=== PATIENT | male | born 1950 | race Caucasian/White ===

== ENCOUNTER 2016-07-28 14:59 | Observation (INO) | payer BC, OTHER ==
--- NOTE | 2016-07-28 15:17 | EDM.PDOC ---
ED HPI Trauma - General Chief Complaint: Trauma Time Seen by Provider: 07/28/16 15:14 Source: Reports: Patient History Limitations: Reports: No limitations - History of Present Illness INITIAL COMMENTS - FREE TEXT/NARRATIVE: pt fell off of a ladder about 16 feet. He did not hit his head but did scrape it on the cement. He is having pain in the lower back area. Occurred When: just prior to arrival Occurred Where: home Method of Injury: fall, other (pt fell about 16 feet off a ladder landing on his buttock. ) Severity: moderate Pain/Injury Location: Reports: other (scrape on the rt forehead area, ) Consciousness: Reports: no loss of consciousness Allergies/ADRs: Allergies No Known Allergies Allergy (Verified 07/28/16 15:13) Home Medications: Ambulatory Orders Omeprazole Magnesium [Prilosec Otc] 1 tab PO DAILY 07/28/16 [Confirmed 07/28/16] Social & Family History - Tobacco Use Second Hand Smoke Exposure: No - Alcohol Use Days Per Week of Alcohol Use: 5 Number of Drinks Per Day: 6 Total Drinks Per Week: 30 - Recreational Drug Use Recreational Drug Use: No Review of Systems - Review of Systems Review Of Systems: See Below Constitutional: Reports: no symptoms Eyes: Reports: no symptoms Ears: Reports: no symptoms Nose: Reports: no symptoms Mouth/Throat: Reports: no symptoms Respiratory: Reports: No Symptoms Cardiovascular: Reports: no symptoms GI/Abdominal: Reports: No symptoms Genitourinary: Reports: no symptoms Musculoskeletal: Reports: other (Pt has acute pain in the lower lumbar area. He fell 16 feet. ) ED EXAM, TRAUMA (MAJOR/MULTI) - Physical Exam Exam: See Below Text/Narrative:: Pt fell 16 feet and landed on his buttock area. He is very uncomfortable in the lower lumbar area. He was not knocked out. he does not have a headache. He has some abrasions on the rt side of his scalp. Exam Limited By: No limitations General Appearance: alert, anxious, moderate distress Head: other ( pt has abrasions on the rt side of his head, He has a hematoma on the rt more to the center. pupils are equal and reactive. ) Ears: normal TMs Nose: normal inspection Throat/Mouth: Normal inspection Neck: non-tender Cardiovascular: regular rate, rhythm Respiratory/Chest: no respiratory distress GI/Abdominal: soft, non tender (Male) Exam: Deferred Rectal (Males) Exam: Deferred Back: other ( tender in the mid to lower lumbar area. ) Extremities: no evidence of injury Neurologic: alert, oriented x 3 Course - Vital Signs Last Recorded V/S: Last Vital Signs Temp 37.7 C 07/28/16 15:07 Pulse 79 07/28/16 16:58 Resp 16 07/28/16 15:58 BP 116/56 L 07/28/16 16:58 Pulse Ox 91 L 07/28/16 16:58 - Orders/Labs/Meds Orders: Active Orders 24 hr Category Date Time Status Chest 1V Frontal [CR] Stat Exams 07/28/16 15:11 Taken Head wo Cont [CT] Stat Exams 07/28/16 16:31 Taken Lumbar Spine wo Cont [CT] Stat Exams 07/28/16 15:13 Taken HYDROmorphone [Dilaudid] Med 07/28/16 18:10 Once 1 mg IVPUSH ONETIME ONE Sodium Chloride 0.9% [Normal Saline] 1,000 ml Med 07/28/16 15:45 Active IV ASDIRECTED Medication Orders Sodium Chloride (Normal Saline) 1,000 mls @ 400 mls/hr IV ASDIRECTED KIRSTIN Last Admin: 07/28/16 15:45 Dose: 400 mls/hr Labs: Laboratory Tests 07/28/16 07/28/16 07/28/16 Range/Units 15:00 15:10 17:27 WBC 11.6 H (4.5-11.0) K/uL RBC 4.95 (4.30-5.90) M/uL Hgb 16.1 H (12.0-15.0) g/dL Hct 46.5 (40.0-54.0) % MCV 94 (80-98) fL MCH 33 H (27-31) pg MCHC 35 (32-36) % Plt Count 149 L (150-400) K/uL Neut % (Auto) 75 H (36-66) % Lymph % (Auto) 16 L (24-44) % [place] % (Auto) 8 H (2-6) % Eos % (Auto) 0 L (2-4) % Baso % (Auto) 0 (0-1) % Sodium 143 (140-148) mmol/L Potassium 4.5 (3.6-5.2) mmol/L Chloride 107 (100-108) mmol/L Carbon Dioxide 29 (21-32) mmol/L Anion Gap 7.4 (5.0-14.0) mmol/L BUN 16 (7-18) mg/dL Creatinine 1.3 (0.8-1.3) mg/dL Est Cr Clr Drug Dosing 61.14 mL/min Estimated GFR (MDRD) 56 L (>60) Glucose 113 H (74-106) mg/dL Calcium 8.7 (8.5-10.1) mg/dL Total Bilirubin 0.5 (0.2-1.0) mg/dL AST 27 (15-37) U/L ALT 21 (12-78) U/L Alkaline Phosphatase 100 (46-116) U/L Total Protein 7.0 (6.4-8.2) g/dL Albumin 3.8 (3.4-5.0) g/dL Globulin 3.2 (2.3-3.5) g/dL Albumin/Globulin Ratio 1.2 (1.2-2.2) Urine Color Yellow Urine Appearance Slightly cloudy Urine pH 5.0 (4.5-8.0) Ur Specific [place] 1.025 (1.008-1.030) Urine Protein Negative (NEGATIVE) mg/dL Urine Glucose (UA) Normal (NEGATIVE) mg/dL Urine Ketones Negative (NEGATIVE) mg/dL Urine Occult Blood Negative (NEGATIVE) Urine Nitrite Negative (NEGAITVE) Urine Bilirubin Negative (NEGATIVE) Urine Urobilinogen Normal (NORMAL) mg/dL Ur Leukocyte Esterase Negative (NEGATIVE) Urine RBC Not seen (0-5) Urine WBC 0-5 (0-5) Ur Epithelial Cells Few Amorphous Sediment Not seen Urine Bacteria Moderate Urine Mucus Moderate Urine Other Meds: Medications Generic Name Dose Route Start Last Admin Trade Name Freq PRN Reason Stop Dose Admin Sodium Chloride 1,000 mls @ 400 mls/hr 07/28/16 15:45 07/28/16 15:45 Normal Saline IV 400 mls/hr ASDIRECTED KIRSTIN Administration Discontinued Medications Generic Name Dose Route Start Last Admin Trade Name Freq PRN Reason Stop Dose Admin Al Hydroxide/Mg Hydroxide 30 ml 07/28/16 15:44 07/28/16 16:01 Mag-Al Plus PO 07/28/16 15:45 30 ml ONETIME ONE Administration Hydromorphone HCl 0.5 mg 07/28/16 16:32 07/28/16 16:42 Dilaudid IVPUSH 07/28/16 16:33 0.5 mg ONETIME ONE Administration Hydromorphone HCl 1 mg 07/28/16 18:10 Dilaudid IVPUSH 07/28/16 18:11 ONETIME ONE Ondansetron HCl 4 mg 07/28/16 18:10 Zofran IVPUSH 07/28/16 18:11 ONETIME ONE - Re-Assessments/Exams Free Text/Narrative Re-Assessment/Exam: 07/28/16 18:11 Pt arrived with pain in lumbar area. He had a cat scan of the head which was neg. His cat scan of the lumbar spine showed a endplate compression change at L1 and L2. Departure - Departure Time of Disposition: 18:13 Disposition: Admitted As Inpatient 68 Condition: fair Clinical Impression: Compression fracture of L2 lumbar vertebra, Compression fracture of L1 lumbar vertebra, Abrasion of face Forms: ED Department Discharge Care Plan Goals: admit to [facility]. - My Orders Last 24 Hours: My Active Orders 07/28/16 15:11 Chest 1V Frontal [CR] Stat 07/28/16 15:13 Lumbar Spine wo Cont [CT] Stat 07/28/16 15:45 Sodium Chloride 0.9% [Normal Saline] 1,000 ml IV ASDIRECTED 07/28/16 16:31 Head wo Cont [CT] Stat 07/28/16 18:10 HYDROmorphone [Dilaudid] 1 mg IVPUSH ONETIME ONE - Assessment/Plan Last 24 Hours: My Active Orders 07/28/16 15:11 Chest 1V Frontal [CR] Stat 07/28/16 15:13 Lumbar Spine wo Cont [CT] Stat 07/28/16 15:45 Sodium Chloride 0.9% [Normal Saline] 1,000 ml IV ASDIRECTED 07/28/16 16:31 Head wo Cont [CT] Stat 07/28/16 18:10 HYDROmorphone [Dilaudid] 1 mg IVPUSH ONETIME ONE
[2016-07-28] MEDS ORDERED: Aluminum Hydroxide/Magnesium Hydroxide/Simethicone Susp 30 ML Cup PO ONE (15:44)
[2016-07-28] MEDS ORDERED: Sodium Chloride 0.9% 1,000 ML IV SCH (15:45)
[2016-07-28] MEDS ORDERED: HYDROmorphone 0.5 MG/0.5 ML Syringe IVPUSH ONE (16:32)
[2016-07-28] MEDS ORDERED: Ondansetron 4 MG/2 ML SDV IVPUSH ONE (18:10)
[2016-07-28] MEDS ORDERED: HYDROmorphone 1 MG/ML Syringe IVPUSH ONE (18:10)
[2016-07-28] MEDS ORDERED: HYDROmorphone/Normal Saline 15 MG/30 ML PCA IV PRN (20:42)
[2016-07-28] MEDS ORDERED: Albuterol 0.083% 2.5 MG/3 ML Neb Soln NEB PRN (20:42)
[2016-07-28] MEDS ORDERED: oxyCODONE 5 MG Tab PO PRN (20:42)
[2016-07-28] MEDS ORDERED: Ondansetron 4 MG Tab.DIS PO PRN (20:42)
[2016-07-28] MEDS ORDERED: LORazepam 2 MG/ML MDV IV PRN (20:42)
[2016-07-28] MEDS ORDERED: Zolpidem 5 MG Tab PO PRN (20:42)
[2016-07-28] MEDS ORDERED: Pantoprazole 40 MG Vial IV SCH (20:42)
[2016-07-28] MEDS ORDERED: Docusate Sodium 100 MG Cap PO PRN (20:42)
[2016-07-28] MEDS ORDERED: Bisacodyl 5 MG Tab PO PRN (20:42)
[2016-07-28] MEDS ORDERED: Naloxone 0.4 MG/ML SDV IVPUSH PRN (20:42)
[2016-07-28] MEDS: Sodium Chloride 0.9% 1,000 ML IV SCH (21:42)
--- NOTE | 2016-07-28 22:32 | PCM.HP ---
H&P History of Present Illness - General Date of Service: 07/28/16 Admit Problem/Dx: Admission Diagnosis/Problem Admission Diagnosis/Problem Compression fracture Source of Information: Patient, EMS, Provider, RN History Limitations: Reports: No limitations - History of Present Illness Initial Comments - Free Text/Narative: ER course; this is a 66-year-old male presents emergency room by EMS, after a fall at his home. He reports was on a ladder about 16-18 feet up when he slipped and fell from the ladder. He reports no loss of consciousness. He was found laying on his left side in a recumbent position by his daughter. The fall was not witnessed by anyone. He has an abrasion to the posterior scalp with bruising. EMS was called as patient was unable to move after a fall. While in emergency room he had CT scan of head lumbar spine. Head CT negative, lumbar spine showed endplate compression fractures of L1 and L2. Labs are negative. Due to to severe back pain patient will be admitted to hospital observation unit for pain control. Patient agrees with plan of care. Onset of Symptoms: Reports: sudden Duration of Symptoms: Reports: Hour(s): Location: Reports: back (Low back), generalized Quality: Reports: Other (Pain currently controlled with Dilaudid) Improves with: Reports: Medication Worsens with: Reports: Movement Context: Reports: trauma (Fell 16 feet from ladder to cement slab in front of his house.) Associated Symptoms: Reports: other (Back pain) Lower Back Pain Score (Numeric/FACES): 5 - Related Data Allergies/Adverse Reactions: Allergies Allergy/AdvReac Type Severity Reaction Status Date / Time No Known Allergies Allergy Verified 07/28/16 15:13 Home Medications: Home Meds Omeprazole Magnesium [Prilosec Otc] 1 tab PO DAILY 07/28/16 [History] Past Medical History HEENT History: Reports: Hard of hearing, Impaired vision Gastrointestinal History: Reports: GERD Musculoskeletal History: Reports: Fracture - Past Surgical History GI Surgical History: Reports: Appendectomy Social & Family History - Family History Family Medical History: Noncontributory - Tobacco Use Smoking Status *Q: Never Smoker Second Hand Smoke Exposure: Yes - Caffeine Use Caffeine Use: Reports: None - Alcohol Use Days Per Week of Alcohol Use: 7 Number of Drinks Per Day: 4 Total Drinks Per Week: 28 Date of Last Drink: 07/27/16 - Recreational Drug Use Recreational Drug Use: No - Living Situation & Occupation Living situation: Reports: 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[place], [place]) H&P Review of Systems - Review of Systems: Review Of Systems: See Below General: Reports: other (Acute low back pain) HEENT: Reports: other (Abrasion and hematoma to posterior scalp.) Pulmonary: Reports: No Symptoms Cardiovascular: Reports: no symptoms Gastrointestinal: Reports: Nausea Genitourinary: Reports: no symptoms Musculoskeletal: Reports: back pain Skin: Reports: bruising, wound (Abrasion to posterior head.) Psychiatric: Reports: no symptoms Neurological: Reports: No Symptoms Hematologic/Lymphatic: Reports: no symptoms Immunologic: Reports: no symptoms Exam - Exam Exam: See Below - Vital Signs Vital Signs: Last Vital Signs Temp 37.7 C 07/28/16 15:07 Pulse 87 07/28/16 20:25 Resp 14 07/28/16 20:25 BP 136/82 07/28/16 20:25 Pulse Ox 91 L 07/28/16 22:31 Weight: 106.367 kg - Exam General: alert, oriented, cooperative, sedated HEENT: PERRLA, Conjunctiva clear, EACs clear, EOMI, Hearing intact, Mucosa moist & pink, Nares patent, Normal nasal septum, Posterior pharynx clear, Pupils equal, Pupils reactive, TMs clear Neck: supple, trachea midline, 2 Lungs: Clear to auscultation Cardiovascular: regular rate, regular rhythm Abdomen: normal bowel sounds, soft (Male) Exam: Deferred Rectal (Males) Exam: Deferred Back Exam: muscle spasm, paraspinal tenderness, vertebral tenderness Extremities: normal inspection Skin: wound (Abrasion noted to posterior scalp without bleeding) Neurological: reflexes equal bilateral, strength equal bilateral Neuro Extensive - Mental Status: alert, oriented x3, normal mood/affect, normal cognition, memory intact Psychiatric: alert, normal affect, normal mood - Patient Data Result Diagrams: 07/28/16 15:10 07/28/16 15:00 *Q Meaningful Use (ADM) - VTE *Q VTE Criteria *Q: - Stroke *Q Stroke Criteria *Q: - AMI *Q AMI Criteria *Q: - Problem List (1) Abrasion of face SNOMED Code(s): 906248395 ICD Code: S00.81XA - ABRASION OF OTHER PART OF HEAD, INITIAL ENCOUNTER Status: Acute Priority: Medium Current Visit: Yes Qualifiers: Encounter type: initial encounter Qualified Code(s): S00.81XA - Abrasion of other part of head, initial encounter (2) Compression fracture of L1 lumbar vertebra SNOMED Code(s): 691400062 ICD Code: S32.010A - WEDGE COMPRESSION FRACTURE OF FIRST LUMBAR VERTEBRA, INIT Status: Acute Priority: High Current Visit: Yes Qualifiers: Encounter type: initial encounter Fracture type: closed Qualified Code(s) : S32.010A - Wedge compression fracture of first lumbar vertebra, initial encounter for closed fracture (3) Compression fracture of L2 lumbar vertebra SNOMED Code(s): 01280058372556404 ICD Code: S32.020A - WEDGE COMPRESSION FRACTURE OF SECOND LUMBAR VERTEBRA, INIT Status: Acute Priority: High Current Visit: Yes Problem List Initiated/Reviewed/Updated: Yes Orders Last 24hrs: Active Orders 24 hr Category Date Time Status Patient Status [ADT] Routine ADT 07/28/16 20:42 Active Communication Order [RC] STAT Care 07/28/16 20:42 Active Intake and Output [RC] QSHIFT Care 07/28/16 20:42 Active Notify Provider [RC] PRN Care 07/28/16 20:42 Active PATTERNMAKER ALL AROUND Record [RC] PER UNIT ROUTINE Care 07/28/16 20:42 Active Pulse Oximetry [RC] CONTINUOUS Care 07/28/16 20:42 Active Pulse Oximetry [RC] CONTINUOUS Care 07/28/16 20:42 Active RT Aerosol Therapy [RC] ASDIRECTED Care 07/28/16 20:42 Active Up With Assistance [RC] ASDIRECTED Care 07/28/16 20:42 Active VTE/DVT Education [RC] Per Unit Routine Care 07/28/16 20:42 Active Vital Signs [RC] Q4H Care 07/28/16 20:42 Active Consult to Spiritual Care [CONS] Routine Cons 07/28/16 20:42 Active OT Evaluation and Treatment [CONS] Routine Cons 07/28/16 20:42 Active PT Evaluation and Treatment [CONS] Routine Cons 07/28/16 20:42 Active Regular Diet [DIET] Diet 07/28/16 Breakfast Active BASIC METABOLIC PANEL,BMP [CHEM] AM Lab 07/29/16 05:11 Ordered CBC WITH AUTO DIFF [HEME] AM Lab 07/29/16 05:11 Ordered Acetaminophen [Tylenol] Med 07/28/16 20:42 Active 650 mg PO Q4H PRN Albuterol [Proventil Neb Soln] Med 07/28/16 20:42 Active 2.5 mg NEB Q4H PRN Bisacodyl [Dulcolax] Med 07/28/16 20:42 Active 5 mg PO DAILY PRN Docusate Sodium [Colace] Med 07/28/16 20:42 Active 100 mg PO BID PRN HYDROmorphone/Normal Saline [Dilaudid PATTERNMAKER ALL AROUND 15 MG in NS Med 07/28/16 20:42 Active 30 ML] See Protocol IV ASDIRECTED PRN LORazepam [Ativan] Med 07/28/16 20:42 Active 1 mg IV Q6H PRN Naloxone [Narcan] Med 07/28/16 20:42 Active 0.4 mg IVPUSH Q2M PRN Ondansetron [Zofran ODT] Med 07/28/16 20:42 Active 4 mg PO Q6H PRN Pantoprazole [ProTONIX IV] Med 07/28/16 20:42 Active 40 mg IV Q12H Sodium Chloride 0.9% [Normal Saline] 1,000 ml Med 07/28/16 20:42 Active IV ASDIRECTED Zolpidem [Ambien] Med 07/28/16 20:42 Active 5 mg PO BEDTIME PRN oxyCODONE Med 07/28/16 20:42 Active 5 mg PO Q4H PRN Medication Discontinuation Instructions [OM.PC] Stat Oth 07/28/16 20:42 Ordered Sequential Compression Device [OM.PC] Per Unit Routine Oth 07/28/16 20:42 Ordered Resuscitation Status Routine Resus Stat 07/28/16 20:12 Ordered Medication Orders Acetaminophen (Tylenol) 650 mg PO Q4H PRN PRN Reason: Pain (Mild 1-3)/fever Albuterol (Proventil Neb Soln) 2.5 mg NEB Q4H PRN PRN Reason: Shortness Of Breath/wheezing Bisacodyl (Dulcolax) 5 mg PO DAILY PRN PRN Reason: Constipation Docusate Sodium (Colace) 100 mg PO BID PRN PRN Reason: Constipation Hydromorphone HCl (Dilaudid Genetic Coordinator 15 Mg In Ns 30 Ml) 0 mg IV ASDIRECTED PRN; Protocol PRN Reason: Pain Last Admin: 07/28/16 21:44 Dose: 15 mg Sodium Chloride (Normal Saline) 1,000 mls @ 125 mls/hr IV ASDIRECTED KIRSTIN Last Admin: 07/28/16 21:42 Dose: 125 mls/hr Lorazepam (Ativan) 1 mg IV Q6H PRN PRN Reason: Nausea/Vomiting Naloxone HCl (Narcan) 0.4 mg IVPUSH Q2M PRN PRN Reason: Respiratory Distress Ondansetron HCl (Zofran Odt) 4 mg PO Q6H PRN PRN Reason: Nausea able to take PO Oxycodone HCl (Oxycodone) 5 mg PO Q4H PRN PRN Reason: Pain (moderate 4-6) Pantoprazole Sodium (Protonix Iv) 40 mg IV Q12H [facility] Last Admin: 07/28/16 22:06 Dose: 40 mg Zolpidem Tartrate (Ambien) 5 mg PO BEDTIME PRN PRN Reason: Sleep Assessment/Plan Comment:: ASSESSMENT / PLAN -ER course; this is a 66-year-old male presents emergency room by EMS, after a fall at his home. He reports was on a ladder about 16-18 feet up when he slipped and fell from the ladder. He reports no loss of consciousness. He was found laying on his left side in a recumbent position by his daughter. The fall was not witnessed by anyone. He has an abrasion to the posterior scalp with bruising. EMS was called as patient was unable to move after a fall. While in emergency room he had CT scan of head lumbar spine. Head CT negative, lumbar spine showed endplate compression fractures of L1 and L2. Labs are negative. Due to to severe back pain patient will be admitted to hospital observation unit for pain control. Patient agrees with plan of care. Plan -Admit to [address] [place] [address] for further monitoring Compression fracture of Lumbar 1 and Lumbar 2 -PATTERNMAKER ALL AROUND Dilaudid pump for pain control; see protocol -IV fluids for rehydration NS at 125 mL per hour -Advise to notify nurses of any chest pain or other symptoms -Order PT, OT -will need to order back brace in am -And a.m. labs: CBC, BMP Scalp Laceration -wound care -monitor for signs of infection Maintenance issues -Orders home meds: hold -Nutrition: Regular diet -Glass catheter not indicated at this time -DVT:SCD -GI Prophalaxis; Protonix 40mg IV bid -referral for Lasting Room Supervisor; spiritual care CODE STATUS: Full Admission status: Admit to Observation -I expect this patient to stay less than 24 hours, not to exceed 96 hours for evaluation and management of this problem. Disposition; home with family Primary care provider: [facility] Ayana
[2016-07-29] MEDS: Sodium Chloride 0.9% 1,000 ML IV SCH (05:26)
[2016-07-29] MEDS: Pantoprazole 40 MG Tab.CR PO SCH ×3 (08:17→17:18)
--- NOTE | 2016-07-29 10:37 | CR ---
Trauma board limits details. Cardiomegaly. Metallic object about the left axilla. No focal consolida tion.
--- NOTE | 2016-07-29 12:25 | PCM.PN ---
- General Info Date of Service: 07/29/16 Functional Status: Reports: pain controlled, ambulating, urinating - Review of Systems General: Reports: No Symptoms Pulmonary: Reports: no symptoms Cardiovascular: Reports: No Symptoms Gastrointestinal: Reports: No symptoms Musculoskeletal: Reports: back pain, leg pain Systems Review Comment:: Mr. Siddiqi is a C6-year-old gentleman who is admitted through the emergency department to observation status after he fell yesterday experiencing spinal compression fractures. X-rays have been reviewed by Dr. Sims, he's not felt to require any type of surgical intervention, a race has been recommended. Pain control is been adequate since admission and he denies chest pain or significant shortness of breath. He does report significant pain in his right hip. - Patient Data Vitals - most recent: Last Vital Signs Temp 99.7 F 07/29/16 11:18 Pulse 95 07/29/16 11:18 Resp 18 07/29/16 11:18 BP 144/77 H 07/29/16 11:18 Pulse Ox 91 L 07/29/16 11:18 Weight - most recent: 234 lb 8 oz I&O - last 24 hours: Intake & Output 07/28/16 07/29/16 07/29/16 22:59 06:59 14:59 Intake Total 400 953 120 Output Total 400 Balance 400 553 120 Lab Results last 24 hrs: Laboratory Results - last 24 hr 07/29/16 07/29/16 Range/Units 05:00 05:00 WBC 11.9 H (4.5-11.0) K/uL RBC 4.34 (4.30-5.90) M/uL Hgb 13.8 D (12.0-15.0) g/dL Hct 41.5 (40.0-54.0) % MCV 96 (80-98) fL MCH 32 H (27-31) pg MCHC 33 (32-36) % Plt Count 130 L (150-400) K/uL Neut % (Auto) 71 H (36-66) % Lymph % (Auto) 18 L (24-44) % [place] % (Auto) 11 H (2-6) % Eos % (Auto) 0 L (2-4) % Baso % (Auto) 0 (0-1) % Sodium 143 (140-148) mmol/L Potassium 4.1 (3.6-5.2) mmol/L Chloride 108 (100-108) mmol/L Carbon Dioxide 29 (21-32) mmol/L Anion Gap 6.0 (5.0-14.0) mmol/L BUN 18 (7-18) mg/dL Creatinine 1.1 (0.8-1.3) mg/dL Est Cr Clr Drug Dosing 71.96 mL/min Estimated GFR (MDRD) > 60 (>60) Glucose 100 (74-106) mg/dL Calcium 7.9 L (8.5-10.1) mg/dL Med Orders - Current: Current Medications Acetaminophen (Tylenol) 650 mg PO Q4H PRN PRN Reason: Pain (Mild 1-3)/fever Albuterol (Proventil Neb Soln) 2.5 mg NEB Q4H PRN PRN Reason: Shortness Of Breath/wheezing Bisacodyl (Dulcolax) 5 mg PO DAILY PRN PRN Reason: Constipation Docusate Sodium (Colace) 100 mg PO BID PRN PRN Reason: Constipation Hydromorphone HCl (Dilaudid Disabilities Services Officer 15 Mg In Ns 30 Ml) 0 mg IV ASDIRECTED PRN; Protocol PRN Reason: Pain Last Admin: 07/28/16 21:44 Dose: 15 mg Lorazepam (Ativan) 1 mg IV Q6H PRN PRN Reason: Nausea/Vomiting Naloxone HCl (Narcan) 0.4 mg IVPUSH Q2M PRN PRN Reason: Respiratory Distress Ondansetron HCl (Zofran Odt) 4 mg PO Q6H PRN PRN Reason: Nausea able to take PO Last Admin: 07/29/16 08:16 Dose: 4 mg Oxycodone HCl (Oxycodone) 5 mg PO Q4H PRN PRN Reason: Pain (moderate 4-6) Pantoprazole Sodium (Protonix) 40 mg PO BIDAC KIRSTIN Last Admin: 07/29/16 09:08 Dose: 40 mg Zolpidem Tartrate (Ambien) 5 mg PO BEDTIME PRN PRN Reason: Sleep Discontinued Medications Al Hydroxide/Mg Hydroxide (Mag-Al Plus) 30 ml PO ONETIME ONE Stop: 07/28/16 15:45 Last Admin: 07/28/16 16:01 Dose: 30 ml Hydromorphone HCl (Dilaudid) 0.5 mg IVPUSH ONETIME ONE Stop: 07/28/16 16:33 Last Admin: 07/28/16 16:42 Dose: 0.5 mg Hydromorphone HCl (Dilaudid) 1 mg IVPUSH ONETIME ONE Stop: 07/28/16 18:11 Last Admin: 07/28/16 18:26 Dose: 1 mg Sodium Chloride (Normal Saline) 1,000 mls @ 400 mls/hr IV ASDIRECTED [facility] Last Admin: 07/28/16 15:45 Dose: 400 mls/hr Sodium Chloride (Normal Saline) 1,000 mls @ 125 mls/hr IV ASDIRECTED [facility] Last Admin: 07/29/16 05:26 Dose: 125 mls/hr Ondansetron HCl (Zofran) 4 mg IVPUSH ONETIME ONE Stop: 07/28/16 18:11 Last Admin: 07/28/16 18:25 Dose: 4 mg Pantoprazole Sodium (Protonix Iv) 40 mg IV Q12H [facility] Last Admin: 07/28/16 22:06 Dose: 40 mg - Exam Quality Assessment: DVT prophylaxis General: alert, oriented, cooperative Lungs: Clear to auscultation, Normal respiratory effort Cardiovascular: Regular Rate, Regular Rhythm Abdomen: bowel sounds present, soft, no tenderness, no distension Back Exam: vertebral tenderness Extremities: other (Right hip pain) - Problem List Review Problem List Initiated/Reviewed/Updated: Yes - My Orders Last 24 Hours: My Active Orders 07/29/16 12:18 Hip Min 4V Rt [CR] Stat 07/29/16 12:19 Convert IV to Saline Lock [OM.PC] Routine - Plan Plan:: ASSESSMENT / PLAN SPINAL COMPRESSION FRACTURES OF L1 AND L2-secondary to a fall off of a ladder -COMPUTER SUPPORT TECHNICIAN Dilaudid pump for pain control; see protocol -Saline lock IV -Order PT, OT -Back brace will be available tomorrow SCALP LACERATION -Wound care -monitor for signs of infection RIGHT HIP PAIN -X-rays of the right hip Maintenance issues -Orders home meds: hold -Nutrition: Regular diet -Glass catheter not indicated at this time -DVT:SCD -GI Prophalaxis; Protonix 40mg IV bid CODE STATUS: Full Admission status: Admit to Observation -I expect this patient to stay less than 24 hours, not to exceed 96 hours for evaluation and management of this problem. Disposition; home with family Primary care provider: [facility] Ayana
--- NOTE | 2016-07-29 13:07 | CR ---
Mild-moderate degenerative changes right hip. No fracture. Osseous protuberance at the right iliac c rest. Correlate for prior surgical change or trauma. Osteochondroma could have this appearance.
[2016-07-29] MEDS ORDERED: Sodium Chloride 0.9% 1,000 ML IV SCH (20:15)
[2016-07-29] MEDS ORDERED: Sodium Chloride 0.9% 10 ML Syringe FLUSH PRN (20:31)
[2016-07-29] MEDS ORDERED: Sodium Chloride 0.9% 80 ML IV SCH (20:45)
[2016-07-29] MEDS ORDERED: Iopamidol 612 MG/ML 100 ML Bottle IV SCH (20:45)
--- NOTE | 2016-07-29 20:48 | PCM.SN ---
- Free Text/Narrative Note: time : 19:24 will call from 2 N. nursing Patient with fever of 102.2 pulse 98 respirations 16 O2 sat is 89 to 91% Breath sounds are diminished. Assessment: rule out sepsis Plan. Will do CT scan of abdomen pelvis chest. Labs CBC, BMP, lactic acid, blood cultures x2, amylase, lipase. IV fluids normal saline at 125 per hour Treat fever with Tylenol Placed on oxygen at 2 L per nasal cannula
[2016-07-30] MEDS: Acetaminophen 325 MG Tab PO PRN ×2 (02:30→10:04)
[2016-07-30] MEDS: Pantoprazole 40 MG Tab.CR PO SCH (07:18)
[2016-07-30 12:13] VITALS: BP 135/77
--- NOTE | 2016-07-30 14:14 | PCM.DCSUM1 ---
Discharge Summary - Hospital Course Brief History: This patient is a 66-year-old gentleman who was admitted through the emergency room with severe back pain secondary to spinal compression fractures at L1 and 2 related to a fall. - Discharge Data Discharge Date: 07/30/16 Discharge Disposition: Home, Self-Care 01 Condition: Good - Discharge Diagnosis/Problem(s) (1) Compression fracture of L2 lumbar vertebra SNOMED Code(s): 48468337438624061 ICD Code: S32.020A - WEDGE COMPRESSION FRACTURE OF SECOND LUMBAR VERTEBRA, INIT Status: Acute Priority: High Current Visit: Yes (2) Compression fracture of L1 lumbar vertebra SNOMED Code(s): 304428701 ICD Code: S32.010A - WEDGE COMPRESSION FRACTURE OF FIRST LUMBAR VERTEBRA, INIT Status: Acute Priority: High Current Visit: Yes Qualifiers: Encounter type: initial encounter Fracture type: closed Qualified Code(s) : S32.010A - Wedge compression fracture of first lumbar vertebra, initial encounter for closed fracture - Patient Summary/Data Consults: Consultations 07/28/16 20:42 Consult to Spiritual Care [CONS] Routine Spiritual Care Reason for Consult: New Diagnosis Spiritual Care Specialty: 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 OT Reason for Consult: Discharge Planning Special Instructions: Compression fractures L1-L2 will need back brace This query below is only for informational purposes and is not editable. PT Evaluation and Treatment [CONS] Routine Please Evaluate and Treat. PT Reason for Consult: Other (Type Response) Special Instructions: Compression fractures L1 and L2 will need back brace This query below is only for informational purposes and is not editable. Hospital Course: Mr. Siddiqi is a 66-year-old gentleman who fell approximately 18 feet off of a ladder landing on his buttocks. He was brought into the emergency department for further evaluation. On assessment reported significant pain in his lower back, CT scan of the lumbar spine documented spinal compression fractures at L1 and L2. Because of severe discomfort he was admitted for pain management. He was given Dilaudid via [employer] for pain management. Physical therapy consult was ordered for placement of a brace which was obtained and placed on the patient prior to discharge. On the day after admission reported significant pain in his right hip, x-ray showed no evidence of fracture in the hip or pelvis. On the evening of the second day developed significant temperature elevation, evaluation including laboratory tests as well as CT scan of the chest abdomen and pelvis showed no obvious source of infection. He had no further temperature elevations during his hospital stay. He will be on limited activity with no lifting or strenuous activity, will resume his usual diet. He will be discharged with pain medication, oxycodone as needed. Followup appointment will be scheduled with Dr. Homer Sims in one week. - Patient Instructions Diet: Usual Diet as Tolerated Activity: Cough & Deep Breathe, No Lifting Over 10 Pounds, No Strenuous Activities Other/Special Instructions: Please arrange for home oxygen, 2 L per minute via nasal cannula. Schedule followup appointment with Dr. Homer Sims in one week. - Discharge Plan Prescriptions/Med Rec: Pantoprazole [ProTONIX] 40 mg PO DAILY #30 tab.cr oxyCODONE 5 - 10 mg PO Q4H PRN #40 tablet PRN Reason: Pain Home Medications: Home Meds Pantoprazole [ProTONIX] 40 mg PO DAILY #30 tab.cr 07/30/16 [Rx] oxyCODONE 5 - 10 mg PO Q4H PRN #40 tablet 07/30/16 [Rx] Referrals: PCP,None [Primary Care Provider] - - Patient Data Vitals - Most Recent: Last Vital Signs Temp 100.1 F 07/30/16 12:00 Pulse 83 07/30/16 12:00 Resp 18 07/30/16 12:00 BP 135/77 07/30/16 12:00 Pulse Ox 91 L 07/30/16 12:00 Weight - Most Recent: 234 lb 8 oz I&O - Last 24 hours: Intake & Output 07/29/16 07/30/16 07/30/16 22:59 06:59 14:59 Intake Total 1065 1075 120 Output Total 700 500 Balance 1065 375 -380 Lab Results - Last 24 hrs: Laboratory Results - last 24 hr 07/29/16 07/29/16 07/29/16 Range/Units 20:11 20:11 20:11 WBC 11.5 H (4.5-11.0) K/uL RBC 4.36 (4.30-5.90) M/uL Hgb 13.7 (12.0-15.0) g/dL Hct 41.8 (40.0-54.0) % MCV 96 (80-98) fL MCH 31 (27-31) pg MCHC 33 (32-36) % Plt Count 126 L (150-400) K/uL Neut % (Auto) 74 H (36-66) % Lymph % (Auto) 15 L (24-44) % [place] % (Auto) 10 H (2-6) % Eos % (Auto) 1 L (2-4) % Baso % (Auto) 0 (0-1) % Sodium 138 L (140-148) mmol/L Potassium 3.8 (3.6-5.2) mmol/L Chloride 104 (100-108) mmol/L Carbon Dioxide 28 (21-32) mmol/L Anion Gap 9.8 (5.0-14.0) mmol/L BUN 18 (7-18) mg/dL Creatinine 1.3 (0.8-1.3) mg/dL Est Cr Clr Drug Dosing 60.89 mL/min Estimated GFR (MDRD) 56 L (>60) Glucose 132 H (74-106) mg/dL Lactic Acid 2.0 (0.4-2.0) mmol/L Calcium 7.4 L (8.5-10.1) mg/dL Total Bilirubin 0.6 (0.2-1.0) mg/dL AST 18 (15-37) U/L ALT 15 (12-78) U/L Alkaline Phosphatase 81 (46-116) U/L Total Protein 6.0 L (6.4-8.2) g/dL Albumin 2.8 L (3.4-5.0) g/dL Globulin 3.2 (2.3-3.5) g/dL Albumin/Globulin Ratio 0.9 L (1.2-2.2) Amylase 33 (25-115) U/L Lipase 72 L (73-393) U/L Urine Color Urine Appearance Urine pH (4.5-8.0) Ur Specific [place] (1.008-1.030) Urine Protein (NEGATIVE) mg/dL Urine Glucose (UA) (NEGATIVE) mg/dL Urine Ketones (NEGATIVE) mg/dL Urine Occult Blood (NEGATIVE) Urine Nitrite (NEGAITVE) Urine Bilirubin (NEGATIVE) Urine Urobilinogen (NORMAL) mg/dL Ur Leukocyte Esterase (NEGATIVE) Urine RBC (0-5) Urine WBC (0-5) Ur Epithelial Cells Amorphous Sediment Urine Bacteria Urine Mucus 07/30/16 Range/Units 02:35 WBC (4.5-11.0) K/uL RBC (4.30-5.90) M/uL Hgb (12.0-15.0) g/dL Hct (40.0-54.0) % MCV (80-98) fL MCH (27-31) pg MCHC (32-36) % Plt Count (150-400) K/uL Neut % (Auto) (36-66) % Lymph % (Auto) (24-44) % [place] % (Auto) (2-6) % Eos % (Auto) (2-4) % Baso % (Auto) (0-1) % Sodium (140-148) mmol/L Potassium (3.6-5.2) mmol/L Chloride (100-108) mmol/L Carbon Dioxide (21-32) mmol/L Anion Gap (5.0-14.0) mmol/L BUN (7-18) mg/dL Creatinine (0.8-1.3) mg/dL Est Cr Clr Drug Dosing mL/min Estimated GFR (MDRD) (>60) Glucose (74-106) mg/dL Lactic Acid (0.4-2.0) mmol/L Calcium (8.5-10.1) mg/dL Total Bilirubin (0.2-1.0) mg/dL AST (15-37) U/L ALT (12-78) U/L Alkaline Phosphatase (46-116) U/L Total Protein (6.4-8.2) g/dL Albumin (3.4-5.0) g/dL Globulin (2.3-3.5) g/dL Albumin/Globulin Ratio (1.2-2.2) Amylase (25-115) U/L Lipase (73-393) U/L Urine Color Yellow Urine Appearance Clear Urine pH 5.0 (4.5-8.0) Ur Specific [place] 1.015 (1.008-1.030) Urine Protein Negative (NEGATIVE) mg/dL Urine Glucose (UA) 100 H (NEGATIVE) mg/dL Urine Ketones Negative (NEGATIVE) mg/dL Urine Occult Blood Negative (NEGATIVE) Urine Nitrite Negative (NEGAITVE) Urine Bilirubin Small (NEGATIVE) Urine Urobilinogen 1 (NORMAL) mg/dL Ur Leukocyte Esterase Negative (NEGATIVE) Urine RBC Not seen (0-5) Urine WBC Not seen (0-5) Ur Epithelial Cells Not seen Amorphous Sediment Not seen Urine Bacteria Not seen Urine Mucus Not seen Med Orders - Current: Current Medications Acetaminophen (Tylenol) 650 mg PO Q4H PRN PRN Reason: Pain (Mild 1-3)/fever Last Admin: 07/30/16 10:04 Dose: 650 mg Albuterol (Proventil Neb Soln) 2.5 mg NEB Q4H PRN PRN Reason: Shortness Of Breath/wheezing Bisacodyl (Dulcolax) 5 mg PO DAILY PRN PRN Reason: Constipation Docusate Sodium (Colace) 100 mg PO BID PRN PRN Reason: Constipation Last Admin: 07/29/16 17:22 Dose: 100 mg Hydromorphone HCl (Dilaudid [employer] Tur[employer] Lathe Set Up [employer] 15 Mg In Ns 30 Ml) 0 mg IV ASDIRECTED PRN; Protocol PRN Reason: Pain Last Admin: 07/28/16 21:44 Dose: 15 mg Sodium Chloride (Normal Saline) 1,000 mls @ 125 mls/hr IV ASDIRECTED KIRSTIN Last Admin: 07/30/16 02:33 Dose: 125 mls/hr Iopamidol (Isovue-300 (61%)) 100 ml IV . DIRECTED [facility] Last Admin: 07/29/16 21:47 Dose: 100 ml Lorazepam (Ativan) 1 mg IV Q6H PRN PRN Reason: Nausea/Vomiting Naloxone HCl (Narcan) 0.4 mg IVPUSH Q2M PRN PRN Reason: Respiratory Distress Ondansetron HCl (Zofran Odt) 4 mg PO Q6H PRN PRN Reason: Nausea able to take PO Last Admin: 07/29/16 08:16 Dose: 4 mg Oxycodone HCl (Oxycodone) 5 mg PO Q4H PRN PRN Reason: Pain (moderate 4-6) Pantoprazole Sodium (Protonix) 40 mg PO BIDAC [facility] Last Admin: 07/30/16 07:18 Dose: 40 mg Sodium Chloride (Saline Flush) 10 ml FLUSH ASDIRECTED PRN PRN Reason: Keep Vein Open Last Admin: 07/29/16 21:47 Dose: 10 ml Zolpidem Tartrate (Ambien) 5 mg PO BEDTIME PRN PRN Reason: Sleep Discontinued Medications Al Hydroxide/Mg Hydroxide (Mag-Al Plus) 30 ml PO ONETIME ONE Stop: 07/28/16 15:45 Last Admin: 07/28/16 16:01 Dose: 30 ml Hydromorphone HCl (Dilaudid) 0.5 mg IVPUSH ONETIME ONE Stop: 07/28/16 16:33 Last Admin: 07/28/16 16:42 Dose: 0.5 mg Hydromorphone HCl (Dilaudid) 1 mg IVPUSH ONETIME ONE Stop: 07/28/16 18:11 Last Admin: 07/28/16 18:26 Dose: 1 mg Sodium Chloride (Normal Saline) 1,000 mls @ 400 mls/hr IV ASDIRECTED KIRSTIN Last Admin: 07/28/16 15:45 Dose: 400 mls/hr Sodium Chloride (Normal Saline) 1,000 mls @ 125 mls/hr IV ASDIRECTED [facility] Last Infusion: 07/29/16 23:45 Dose: Infused Sodium Chloride (Normal Saline) 80 mls @ 3 mls/sec IV ASDIRECTED KIRSTIN Last Admin: 07/29/16 21:47 Dose: 3 mls/sec Ondansetron HCl (Zofran) 4 mg IVPUSH ONETIME ONE Stop: 07/28/16 18:11 Last Admin: 07/28/16 18:25 Dose: 4 mg Pantoprazole Sodium (Protonix Iv) 40 mg IV Q12H [facility] Last Admin: 07/28/16 22:06 Dose: 40 mg *Q Meaningful Use (DIS) - VTE *Q VTE Criteria *Q: - Stroke *Q Stroke Criteria *Q: - AMI *Q AMI Criteria *Q:
== END 2016-07-30 16:37 | disposition home or self-care (01) ==
LOC: JP.ED 14:59 → JP.MS 20:11
PROVIDERS: ADMIT Hospitalist; ATTEND Hospitalist
DX: S32.020A Wedge compression fracture of second lumbar vertebra, initial encounter for closed fracture (principal); W11.XXXA Fall on and from ladder, initial encounter; Y92.008 Other place in unspecified non-institutional (private) residence as the place of occurrence of the external cause; S00.01XA Abrasion of scalp, initial encounter; M54.5 Low back pain; K21.9 Gastro-esophageal reflux disease without esophagitis; S32.010A Wedge compression fracture of first lumbar vertebra, initial encounter for closed fracture; M25.551 Pain in right hip
CPT/HCPCS: 36415; 70450; 71010; 71260; 72131; 73502; 74177; 80048; 80053; 81001; 82150; 83605; 83690; 85025; 87040; 94762; 96361; 96374; 96375; 96376; 97110; 97162; 97165; 97530; 97535; 97760; 99285; A9270; C9113; G0378; J1170; J2405; J7030; J7040; J7050; Q9967; 99217; 99219; 99225

== ENCOUNTER 2021-06-19 09:49 | Observation (INO) | payer MEDICARE, BC ==
[2021-06-19] MEDS ORDERED: levETIRAcetam 1,000 MG in Sodium Chloride 0.9% 100 ML IV ONE (11:14)
[2021-06-19] MEDS ORDERED: Aluminum Hydroxide/Magnesium Hydroxide/Simethicone Susp 30 ML Cup PO ONE (12:07)
[2021-06-19] MEDS ORDERED: Gadoteridol 279.3 MG/ML 20 ML SDV IV SCH (12:30)
[2021-06-19] MEDS ORDERED: Ondansetron 4 MG Tab.DIS PO PRN (15:53)
[2021-06-19] MEDS ORDERED: Acetaminophen 325 MG Tab PO PRN (15:53)
[2021-06-19] MEDS ORDERED: Ondansetron 4 MG/2 ML SDV IV PRN (15:53)
[2021-06-19] MEDS ORDERED: LORazepam 2 MG/ML SDV IVPUSH PRN (15:53)
[2021-06-19] MEDS ORDERED: Magnesium Hydroxide 400 MG/5 ML Susp 30 ML Cup PO PRN (15:53)
[2021-06-19] MEDS ORDERED: Melatonin 3 MG Tab PO PRN (15:53)
[2021-06-19 17:45] LABS: CORONAVIRUS COVID-19 NAA NEGATIVE (NEGATIVE)
[2021-06-19] MEDS: levETIRAcetam 250 MG Tab PO SCH (20:49)
[2021-06-20] MEDS ORDERED: Lisinopril 20 MG Tab PO SCH (09:00)
[2021-06-20] MEDS: levETIRAcetam 250 MG Tab PO SCH (09:05)
[2021-06-20 10:38] VITALS: PULSE 79
[2021-06-20 12:08] VITALS: BP 93/78
== END 2021-06-20 12:30 | disposition home or self-care (01) ==
LOC: JP.ED 09:49 → JP.MS 14:49
PROVIDERS: ADMIT Internal Medicine; ATTEND Internal Medicine
DX: G40.409 Other generalized epilepsy and epileptic syndromes, not intractable, without status epilepticus (principal); H54.7 Unspecified visual loss; I10 Essential (primary) hypertension; Z90.49 Acquired absence of other specified parts of digestive tract; Z79.899 Other long term (current) drug therapy; Z20.822 Contact with and (suspected) exposure to COVID-19
CPT/HCPCS: 0241U; 36415; 70450; 70553; 80053; 85025; 96365; 99222; 99238; 99285; 99285-25; A9270-GY; A9579; J1953

== ENCOUNTER 2023-04-04 13:14 | Emergency (ER) | payer MEDICARE, BC ==
[2023-04-04] MEDS ORDERED: Aspirin 81 MG Tab.Chew PO ONE (13:56)
[2023-04-04 14:02] LABS: BASOPHILS ABSOLUTE AUTO 0.05 K/uL (0.00-0.10); BASOPHILS PERCENT AUTO 0.4 % (0.1-1.3); EOSINOPHILS ABSOLUTE AUTO 0.16 K/uL (0.00-0.40); EOSINOPHILS PERCENT AUTO 1.4 % (0.0-5.4); HEMATOCRIT 46.5 % (38.4-49.7); IMMATURE GRAN ABSOLUTE AUTO 0.06 K/uL (0.00-0.23); IMMATURE GRAN PERCENT AUTO 0.5 % (0.0-0.7); LYMPHOCYTES ABSOLUTE AUTO 1.89 K/uL (0.8-3.3); LYMPHOCYTES PERCENT AUTO 16.3 % (11.4-47.7); MEAN CORPUSCULAR HEMOGLOBIN 32.5 pg (31.6-35.5); MEAN CORPUSCULAR HGB CONC 34.4 g/dL (31.6-35.5); MEAN CORPUSCULAR VOLUME 94.3 fL (81.4-99.0); MONOCYTES ABSOLUTE AUTO 1.15 K/uL (0.20-0.90); MONOCYTES PERCENT AUTO 9.9 % (3.3-12.6); NEUTROPHILS ABSOLUTE AUTO 8.26 K/uL (1.0-7.6); NEUTROPHILS PERCENT AUTO 71.5 % (40.0-78.1); PLATELET COUNT,PLT 150 K/uL (130-375); RED BLOOD CELL COUNT 4.93 M/uL (4.14-5.76); WHITE BLOOD CELL COUNT,WBC 11.6 K/uL (3.2-11.0)
[2023-04-04 14:15] LABS: A/G RATIO 1.1 (1.2-2.2); ALANINE AMINOTRANSFERASE,ALT 19 U/L (12-78); ALBUMIN 3.6 g/dL (3.4-5.0); ALKALINE PHOSPHATASE 121 U/L (46-116); ASPARTATE AMNIOTRANSFERASE,AST 19 U/L (15-37); BILIRUBIN TOTAL 0.5 mg/dL (0.2-1.0); BLOOD UREA NITROGEN,BUN 23 mg/dL (7-18); CALCIUM 8.4 mg/dL (8.5-10.1); CARBON DIOXIDE,CO2 27 mmol/L (21-32); CHLORIDE,CL 104 mmol/L (100-108); CREATININE 1.2 mg/dL (0.8-1.3); EST CRCL DRUG DOSING (CG) 59.14 mL/min; ESTIMATED GFR 65 mL/min (>60); GLUCOSE RANDOM 97 mg/dL (74-106); POTASSIUM,K 4.4 mmol/L (3.6-5.2); SODIUM,NA 137 mmol/L (140-148); TROPONIN I HIGH SENSITIVITY 8.6 pg/mL (<=60.3)
[2023-04-04 14:16] LABS: ANION GAP 10.4 mmol/L (5.0-14.0)
[2023-04-04] MEDS ORDERED: Ketorolac 30 MG/ML SDV IM ONE (14:53)
[2023-04-04 15:11] VITALS: BP 125/81; PULSE 78
== END 2023-04-04 16:41 | disposition home or self-care (01) ==
LOC: JP.ED 13:14
DX: S52.125A Nondisplaced fracture of head of left radius, initial encounter for closed fracture (principal); I10 Essential (primary) hypertension; K21.9 Gastro-esophageal reflux disease without esophagitis; Z79.899 Other long term (current) drug therapy
CPT/HCPCS: 29105; 29125; 36415; 73080; 80053; 84484; 85025; 93010; 96372; 99283; 99285; A9270; J1885

== ENCOUNTER 2023-04-05 19:53 | Emergency (ER) | payer MEDICARE, BC ==
[2023-04-05 19:56] VITALS: BP 139/77; PULSE 91
== END 2023-04-05 21:03 | disposition home or self-care (01) ==
LOC: JP.ED 19:53
DX: S52.122A Displaced fracture of head of left radius, initial encounter for closed fracture (principal); I10 Essential (primary) hypertension; K21.9 Gastro-esophageal reflux disease without esophagitis; W19.XXXA Unspecified fall, initial encounter
CPT/HCPCS: 73030-LT; 73110-LT; 99284

== ENCOUNTER 2024-09-13 17:19 | Emergency (ER) | payer MEDICARE, BC ==
[2024-09-13] MEDS ORDERED: Sodium Chloride 0.9% 10 ML Syringe FLUSH PRN (17:32)
[2024-09-13 17:34] VITALS: BP 132/94; PULSE 98
[2024-09-13] MEDS: Sodium Chloride 0.9% 1,000 ML IV ONE (17:44)
[2024-09-13 17:47] LABS: BASOPHILS PERCENT AUTO 0.9 % (0.1-1.3); EOSINOPHILS ABSOLUTE AUTO 0.13 K/uL (0.00-0.40); EOSINOPHILS PERCENT AUTO 1.2 % (0.0-5.4); HEMOGLOBIN 16.2 g/dL (12.9-16.9); IMMATURE GRAN ABSOLUTE AUTO 0.06 K/uL (0.00-0.23); IMMATURE GRAN PERCENT AUTO 0.5 % (0.0-0.7); LYMPHOCYTES ABSOLUTE AUTO 2.05 K/uL (0.8-3.3); LYMPHOCYTES PERCENT AUTO 18.5 % (11.4-47.7); MEAN CORPUSCULAR HEMOGLOBIN 33.3 pg (31.6-35.5); MEAN CORPUSCULAR HGB CONC 34.5 g/dL (31.6-35.5); MEAN CORPUSCULAR VOLUME 96.5 fL (81.4-99.0); MONOCYTES ABSOLUTE AUTO 0.91 K/uL (0.20-0.90); MONOCYTES PERCENT AUTO 8.2 % (3.3-12.6); NEUTROPHILS ABSOLUTE AUTO 7.81 K/uL (1.0-7.6); NEUTROPHILS PERCENT AUTO 70.7 % (40.0-78.1); PLATELET COUNT,PLT 157 K/uL (130-375); RED BLOOD CELL COUNT 4.87 M/uL (4.14-5.76); WHITE BLOOD CELL COUNT,WBC 11.1 K/uL (3.2-11.0)
[2024-09-13 18:08] LABS: ANION GAP 9.6 mmol/L (5.0-14.0); CREATININE 1.2 mg/dL (0.8-1.3); EST CRCL DRUG DOSING (CG) 59.26 mL/min; MAGNESIUM 1.8 mg/dL (1.8-2.4); POTASSIUM,K 3.6 mmol/L (3.6-5.2)
== END 2024-09-13 19:00 | disposition home or self-care (01) ==
LOC: JP.ED 17:19
DX: R42 Dizziness and giddiness (principal); E86.0 Dehydration; I10 Essential (primary) hypertension; K21.9 Gastro-esophageal reflux disease without esophagitis; Z79.899 Other long term (current) drug therapy; Z90.49 Acquired absence of other specified parts of digestive tract
CPT/HCPCS: 36415; 70450; 80048; 80307; 83735; 84484; 85025; 93005; 93010; 96360; 99284; 99285; J7030

== ENCOUNTER 2024-10-29 19:59 | Emergency (ER) | payer MEDICARE, BC ==
[2024-10-29] MEDS ORDERED: Sodium Chloride 0.9% 10 ML Syringe FLUSH PRN (20:33)
[2024-10-29 20:49] LABS: BASOPHILS ABSOLUTE AUTO 0.07 K/uL (0.00-0.10); BASOPHILS PERCENT AUTO 0.9 % (0.1-1.3); EOSINOPHILS ABSOLUTE AUTO 0.25 K/uL (0.00-0.40); EOSINOPHILS PERCENT AUTO 3.0 % (0.0-5.4); IMMATURE GRAN ABSOLUTE AUTO 0.06 K/uL (0.00-0.23); IMMATURE GRAN PERCENT AUTO 0.7 % (0.0-0.7); LYMPHOCYTES ABSOLUTE AUTO 2.15 K/uL (0.8-3.3); LYMPHOCYTES PERCENT AUTO 26.2 % (11.4-47.7); MONOCYTES ABSOLUTE AUTO 0.82 K/uL (0.20-0.90); MONOCYTES PERCENT AUTO 10.0 % (3.3-12.6); NEUTROPHILS ABSOLUTE AUTO 4.85 K/uL (1.0-7.6); NEUTROPHILS PERCENT AUTO 59.2 % (40.0-78.1); PLATELET COUNT,PLT 148 K/uL (130-375); RED BLOOD CELL COUNT 4.95 M/uL (4.14-5.76); WHITE BLOOD CELL COUNT,WBC 8.2 K/uL (3.2-11.0)
[2024-10-29 21:13] LABS: A/G RATIO 1.1 (1.2-2.2); ALANINE AMINOTRANSFERASE,ALT 23 U/L (12-78); ASPARTATE AMNIOTRANSFERASE,AST 22 U/L (15-37); BILIRUBIN TOTAL 0.3 mg/dL (0.2-1.0); BLOOD UREA NITROGEN,BUN 13 mg/dL (7-18); CARBON DIOXIDE,CO2 29 mmol/L (21-32); CHLORIDE,CL 103 mmol/L (100-108); CREATININE 1.4 mg/dL (0.8-1.3); EST CRCL DRUG DOSING (CG) 49.25 mL/min; ESTIMATED GFR 53 mL/min (>60); GLUCOSE RANDOM 108 mg/dL (74-106); POTASSIUM,K 4.0 mmol/L (3.6-5.2); PROTEIN TOTAL,TP 7.0 g/dL (6.4-8.2); SODIUM,NA 139 mmol/L (140-148); TROPONIN I HIGH SENSITIVITY 11.8 pg/mL (<=60.3)
[2024-10-30 00:05] VITALS: BP 142/83; PULSE 71
== END 2024-10-30 00:26 | disposition home or self-care (01) ==
LOC: JP.ED 19:59
DX: S29.9XXA Unspecified injury of thorax, initial encounter (principal); S09.90XA Unspecified injury of head, initial encounter; Z79.899 Other long term (current) drug therapy; I10 Essential (primary) hypertension; K21.9 Gastro-esophageal reflux disease without esophagitis; Z90.49 Acquired absence of other specified parts of digestive tract; W19.XXXA Unspecified fall, initial encounter
CPT/HCPCS: 36415; 70450; 71046; 72125; 76377; 80053; 80307; 83690; 84484; 85025; 93005; 99284; J7030